=== PATIENT | male | born 1935 | race African-American/Black ===

== ENCOUNTER 2020-10-24 07:57 | Inpatient (IN) ==
[2020-10-24] MEDS ORDERED: MIDAZOLAM 2 MG/2 ML VIAL ONE (08:09)
[2020-10-24] MEDS ORDERED: ROCURONIUM 50 MG/5 ML VIAL IV ONE ×2 (08:09→08:47)
[2020-10-24] MEDS ORDERED: BUPIVACAINE MPF 0.25% 30 ML VIAL ONE (08:19)
[2020-10-24] MEDS ORDERED: TISSUE ADHESIVE 1 EACH APPLICATOR TOP ONE (08:19)
[2020-10-24] MEDS ORDERED: PHENYLEPHRINE 1 MG/10 ML SYRINGE IV ONE ×2 (08:47→09:55)
[2020-10-24] MEDS ORDERED: SEVOFLURANE 1 UNIT/15 MINUTE INH ONE (08:47)
[2020-10-24] MEDS ORDERED: fentaNYL 100 MCG/2 ML VIAL ONE (08:49)
[2020-10-24] MEDS ORDERED: ACETAMINOPHEN 325 MG TABLET PO PRN (13:53)
[2020-10-24] MEDS ORDERED: ONDANSETRON 4 MG/2 ML VIAL IV PRN (13:53)
[2020-10-24] MEDS: LACTATED RINGERS 1,000 ML IV SCH ×2 (14:10→22:10)
[2020-10-24 14:20] VITALS: BP 120/69
[2020-10-24 15:18] LABS: ABG Base Excess -1.6 MMOL/L (-2.5-2.5); ABG HCO3 21.6 MMOL/L (20-26); ABG PCO2 32.4 MM HG (35-48); ABG PH 7.442 (7.35-7.45); ABG PO2 149.5 MM HG (80-95); ABG TCO2 22.6 MMOL/L (23-27)
[2020-10-24] MEDS: DICLOFENAC 1% GEL 100 GM TUBE TOP SCH ×2 (16:42→20:47)
[2020-10-24] MEDS: levETIRAcetam LIQUID 100 MG/ML 30 ML/BOTTLE PO SCH (20:43)
[2020-10-25 03:27] LABS: ABG Base Excess 1.4 MMOL/L (-2.5-2.5); ABG HCO3 25.7 MMOL/L (20-26); ABG PCO2 36.4 MM HG (35-48); ABG TCO2 23.8 MMOL/L (23-27)
[2020-10-25 06:14] LABS: Basophils % 0.2 % (0.0-0.8); Eosinophils # 0.3 10*3/uL (0.0-0.87); Eosinophils % 3.2 % (0.00-10.9); Hematocrit 23.4 VOL% (42.0-52.0); Hemoglobin 7.3 GM/DL (14.0-18.0); Immature Granulocytes % 0.8 %; Immature Granulocytes Absolute 0.08 #; Lymphocytes # 0.8 10*3/uL (1.4-4.0); Lymphocytes % 8.1 % (21.2-54.2); Mean Corpuscular HGB Conc 31.2 GM/DL (32-36); Mean Corpuscular Volume 97.5 FL (87-102); Mean Platelet Volume 9.4 FL (9.6-12.0); Monocytes % 5.6 % (1.7-12.7); Neutrophils % 82.1 % (38.7-73.9); Platelet Count 250 T/CUMM (130-400); Red Cell Distribution Width 14.6 % (9.3-17.3); White Blood Count 10.1 T/CUMM (4-12)
[2020-10-25 06:18] LABS: Calcium 7.8 MG/DL (8.5-10.1); Osmolality,Calculated 284.4 MOS/KG (273-304); Potassium 4.3 MMOL/L (3.5-5.1)
[2020-10-25] MEDS: LACTATED RINGERS 1,000 ML IV SCH ×3 (07:56→15:16)
[2020-10-25] MEDS ORDERED: PANTOPRAZOLE 40 MG TABLET PO SCH (09:00)
[2020-10-25] MEDS ORDERED: OMEPRAZOLE ODT 20 MG TABLET PO SCH (09:00)
[2020-10-25] MEDS ORDERED: AMIODARONE 200 MG TABLET PO SCH (09:00)
[2020-10-25] MEDS: DICLOFENAC 1% GEL 100 GM TUBE TOP SCH ×2 (10:32→15:16)
[2020-10-25] MEDS: levETIRAcetam LIQUID 100 MG/ML 30 ML/BOTTLE PO SCH (10:32)
== END 2020-10-25 15:55 | DRG 4 ==
LOC: N.OR 07:57 → N.ICU 11:39
PROVIDERS: ADMIT Surgery; ATTEND Internal Medicine Pulmonary Disease